=== PATIENT | male | born 1985 | race Two or more races ===

== ENCOUNTER 2017-03-28 22:13 | Emergency (ER) | payer SELFPAY ==
[~2017-03-28] VITALS: Ht 177.8 cm; Wt 77.1 kg
[2017-03-28 22:28] VITALS: BP 139/87
[2017-03-29] MEDS ORDERED: IBUPROFEN 600 MG TAB PO ONE (00:30)
[2017-03-29] MEDS ORDERED: cefTRIAXone SOD 1,000 MG VL IM ONE (00:30)
[2017-03-29] MEDS ORDERED: NEOMYCIN-BACITRACIN-POLYM UNITDOSE PKG TOP OINT TOP ONE (00:30)
== END 2017-03-29 01:47 ==
LOC: ER 22:23 → EDBD 22:23 → ER 03-29 01:47
DX: S00.83XA Contusion of other part of head, initial encounter (principal); S50.12XA Contusion of left forearm, initial encounter; S00.81XA Abrasion of other part of head, initial encounter; V49.69XA Unspecified car occupant injured in collision with other motor vehicles in traffic accident, initial encounter; Y93.89 Activity, other specified; Y99.8 Other external cause status; Y92.410 Unspecified street and highway as the place of occurrence of the external cause
CPT/HCPCS: 70450; 70486; 73090; 96372; 99284; J0696